=== PATIENT | female | born 1965 | race Caucasian/White ===

== ENCOUNTER 2023-08-23 21:36 | Emergency (ER) | payer OTHER ==
[~2023-08-23] VITALS: Ht 154.9 cm; Wt 70.3 kg
[2023-08-23] MEDS ORDERED: MORPHINE SULFATE 4 MG/1 ML DISP.SYRIN IM ONE (21:45)
[2023-08-23] MEDS ORDERED: KETOROLAC TROMETHAMINE 30 MG INJ ONE (21:53)
[2023-08-23] MEDS: KETOROLAC TROMETHAMINE 30 MG INJ IM ONE (21:55)
[2023-08-23 23:49] VITALS: BP 169/83; O2SAT 98
== END 2023-08-23 23:51 | disposition home or self-care (01) ==
LOC: ER 21:38
DX: S82.842A Displaced bimalleolar fracture of left lower leg, initial encounter for closed fracture (principal); W01.0XXA Fall on same level from slipping, tripping and stumbling without subsequent striking against object, initial encounter; Y93.89 Activity, other specified; Y92.89 Other specified places as the place of occurrence of the external cause; Y99.8 Other external cause status
CPT/HCPCS: 29515; 73610; 73620; 96372; 99284; J1885; A4606; A4663